=== PATIENT | female | born 1985 | race Caucasian/White ===

== ENCOUNTER → 2019-05-20 17:04 | Outpatient (CLI) | payer BC, SELFPAY ==
[2016-07-16 12:16] VITALS: BMI 38.5
[2019-05-20 18:06] LABS: Absolute Lymphocyte Count 1.61 X10^3/uL (0.83-4.51); Absolute Neutrophil Count 3.4 X10^3/uL (2.0-7.7); Basophil# 0.01 X10^3/uL; Basophil% 0.2 % (0-1); Eosinophil# 0.03 X10^3/uL; Eosinophils% 0.6 % (0-5); Hematocrit 40.5 % (37-47); Hemoglobin 13.1 g/dL (12.0-15.0); Lymphocyte # 1.61 X10^3/ul (4.0); Mean Corp Hgb Conc 32.3 g/dL (32-36); Mean Corpuscular Hgb 28.6 pg (27.0-32.0); Mean Corpuscular Volume 88.4 fL (81-99); Mean Platelet Vol. 10.7 fl (6.2-12.0); Monocyte# 0.27 X10^3/uL; NRBC Flagged by Analyzer 0 % (0-5); Neutrophil # 3.44 X10^3/uL (2.7-7.7); Platelet Count 265 K/mm3 (150-450); RBC Distribution Width CV 12.4 % (11.6-14.6); RBC Distribution Width SD 40.4 fl (35.1-43.9); Red Blood Count 4.58 M/mm3 (4.2-5.4); White Blood Count 5.4 K/mm3 (4.4-11.0)
[2019-05-20 20:17] LABS: Prolactin 12.2 ng/mL; Thyroid Stim Hormone (TSH) 1.07 uIU/mL (0.358-3.74)
== END ==
PROVIDERS: Visit Provider Advanced Practice Midwife
DX: N92.0 Excessive and frequent menstruation with regular cycle (principal)
CPT/HCPCS: 36415; 84146; 84443; 85025

== ENCOUNTER → 2019-05-29 | Outpatient (CLI) | payer BC, SELFPAY ==
--- NOTE | 2019-05-29 | EMB_PTH ---
PATIENT: GABE LYNN LOC: [facility] U#:[id number] AGE/SX: 33/F ROOM: RE05/29/[address]: Dr. Alejandro Cardenas MD : [id number] BED: DIS: 05/29/2019 SPEC #: [id number] RECD: 05/29/19 16:43 STATUS: AYAH MARYAM #: [id number] GAEL: 05/29/19 00:[address]: Alejandro Cardenas DEPT: SURGICAL PATHOLOGY RECD BY: Rafael Lou Tissues: Endometrium, NOS Procedures: Surgery Specimen Level IV HEADER OPERATION: Endometrial biopsy PRE-OP DIAGNOSIS: N92.0 N93.9 TISSUE SUBMITTED: Endometrial biopsy MICROSCOPIC DIAGNOSIS Endometrial biopsy: Mildly disordered proliferative endometrium. SJ:lorene 06/02/19 MICROSCOPIC DESCRIPTION Slides are reviewed. GROSS DESCRIPTION Received in fixative is one container labeled with the patient's name and designated endometrial biopsy. The specimen consists of multiple mucoid fragments of light to dark manjarrez soft tissue that in aggregate measure 2 x 2 x 0.1 cm. The specimen is totally submitted in one cassette. / AM:lorene 06/01/19 TC:5 CPT: 90564 ADDENDUM ADDENDUM ADDENDUM ADDENDUM ADDENDUM 06/03/2019 13:55 ADDENDUM 06/03/2019 13:55 ADDENDUM 06/03/2019 13:55 ADDENDUM 06/03/2019 13:55 ADDENDUM 06/03/2019 13:55 During QC review by Dr. Jackson, rare plasma cell is noted, consistent with mild chronic endometritis. SJ:lorene 06/03/19
== END | disposition home or self-care (01) ==
LOC: LABSPEC 16:02
PROVIDERS: Referring Provider Obstetrics & Gynecology; Visit Provider Obstetrics & Gynecology
DX: N92.0 Excessive and frequent menstruation with regular cycle (principal); N93.9 Abnormal uterine and vaginal bleeding, unspecified
CPT/HCPCS: 88305